=== PATIENT | male | born 1960 | race Caucasian/White ===

== ENCOUNTER → 2025-04-09 08:57 | Outpatient (CLI) | payer MEDICARE, OTHER, MEDICAID, SELFPAY ==
--- NOTE | 2025-04-09 09:03 | DI.US.S_ITS ---
PROCEDURE: US BREAST RT LIMITED COMPARISON: None. INDICATIONS: RIGHT NIPPLE PAIN FINDINGS: IMPRESSION: Dictated by: Diego Ga M.D. on 04/09/2025 at 10:15 Approved by: Diego Ga M.D. on 04/09/2025 at 10:30
--- NOTE | 2025-04-09 09:03 | DI.MG.S_ITS ---
MM diagnostic mammo BI, US breast RT limited: 04/09/2025 BI-RADS: 2 CLINICAL: 64-year old male for bilateral diagnostic mammogram and right diagnostic breast ultrasound. Current reported family history of breast cancer: sister. The patient reports a palpable abnormality (less than 1 month) and pain (3 months) in the right breast. PRIOR EXAMS No prior examinations available. MAMMOGRAPHY TECHNIQUE: 2D and 3D (tomosynthesis) digital mammographic views obtained, with additional images as needed for full coverage. Current study was also evaluated with a Computer Aided Detection (CAD) system. ULTRASOUND TECHNIQUE TARGETED Right Breast Ultrasound: Real-time ultrasound exam was performed focused to area of clinical and/or imaging concern. DENSITY A. The breasts are almost entirely fatty. MAMMOGRAPHY FINDINGS Right: Central at 11:30, Retroareolar, Far Anterior depth: There is an asymmetry consistent with gynecomastia. Left: Central, Retroareolar, Far Anterior depth: There is an asymmetry consistent with gynecomastia. ULTRASOUND FINDINGS Right: Upper at 12:00, Retroareolar: There is no suspicious sonographic finding. Correlating with palpable lump and also with findings on mammogram there is retroareolar fibroglandular tissue consistent with gynecomastia. IMPRESSION: * No evidence of malignancy with benign findings. OVERALL ASSESSMENT CATEGORY BI-RADS-2: Benign. ELECTRONICALLY SIGNED: Diego Ga M.D. on 04/09/2025 at 10:30:16 AM PT Interpreting Station ID: [id number]
--- NOTE | 2025-04-09 09:36 | DI.US.S_ITS ---
Patient Name: LISBET RIVAS date: 1960 Sex: M Attending Physician: Melissa Indications: Date: 04/09/2025 10:30 At the request of: KATIE COOPER Procedure: US breast RT limited MM diagnostic mammo BI, US breast RT limited: 04/09/2025 BI-RADS: 2 CLINICAL: 64-year old male for bilateral diagnostic mammogram and right diagnostic breast ultrasound. Current reported family history of breast cancer: sister. The patient reports a palpable abnormality (less than 1 month) and pain (3 months) in the right breast. PRIOR EXAMS No prior examinations available. MAMMOGRAPHY TECHNIQUE: 2D and 3D (tomosynthesis) digital mammographic views obtained, with additional images as needed for full coverage. Current study was also evaluated with a Computer Aided Detection (CAD) system. ULTRASOUND TECHNIQUE TARGETED Right Breast Ultrasound: Real-time ultrasound exam was performed focused to area of clinical and/or imaging concern. DENSITY A. The breasts are almost entirely fatty. MAMMOGRAPHY FINDINGS Right: Central at 11:30, Retroareolar, Far Anterior depth: There is an asymmetry consistent with gynecomastia. Left: Central, Retroareolar, Far Anterior depth: There is an asymmetry consistent with gynecomastia. ULTRASOUND FINDINGS Continued Report - Page 2 of 2 Patient Name: LISBET RIVAS date: 1960 Sex: M Attending Physician: Melissa Indications: Date: 04/09/2025 10:30 At the request of: KATIE COOPER Procedure: US breast RT limited Right: Upper at 12:00, Retroareolar: There is no suspicious sonographic finding. Correlating with palpable lump and also with findings on mammogram there is retroareolar fibroglandular tissue consistent with gynecomastia. IMPRESSION: * No evidence of malignancy with benign findings. OVERALL ASSESSMENT CATEGORY BI-RADS-2: Benign. ELECTRONICALLY SIGNED: Diego Ga M.D. on 04/09/2025 at 10:30:16 AM PT Interpreting Station ID: [id number]
== END ==
PROVIDERS: PCP Family Medicine; Referring Provider Nurse Practitioner Family; Visit Provider Nurse Practitioner Family
DX: N64.4 Mastodynia (principal); N62 Hypertrophy of breast; R92.313 Mammographic fatty tissue density, bilateral breasts; Z80.3 Family history of malignant neoplasm of breast; Z85.46 Personal history of malignant neoplasm of prostate
CPT/HCPCS: 76642; 77066; G0279